=== PATIENT | female | born 1960 | race Caucasian/White ===

== ENCOUNTER → 2020-12-17 | Outpatient (CLI) | payer SELFPAY | END | disposition home or self-care (01) | LOC: US 08:03 | PROVIDERS: ATTEND Family Medicine | DX: I73.9 Peripheral vascular disease, unspecified (principal) ==

== ENCOUNTER 2020-12-21 21:49 | Emergency (ER) | payer SELFPAY ==
[~2020-12-21] VITALS: Ht 170.2 cm; Wt 122.5 kg
[2020-12-22 01:22] LABS: BASO % 0.2 % (0.0-1.0); EOS # 0.1 10*3/uL (0.0-0.4); EOS % 0.8 % (1.0-4.0); HEMATOCRIT 44.8 % (37.0-47.0); LYMPH # 2.6 10*3/uL (1.3-4.4); LYMPH % 19.9 % (27.0-41.0); MEAN CELL VOLUME 91.2 fl (81.0-99.0); MEAN CORPUSCULAR HGB 29.5 pg (27.0-31.0); MEAN CORPUSCULAR HGB CONC 32.4 g/dl (33.0-37.0); MEAN PLATELET VOLUME 9.7 fl (9.6-12.3); MONO % 7.2 % (3.0-9.0); NEUT # 9.4 10*3/uL (2.3-7.9); NEUT % 71.4 % (47.0-73.0); PLATELET COUNT AUTOMATED 295 10*3/uL (130-400); RED BLOOD COUNT 4.91 10*6/uL (4.10-5.10); RED CELL DISTRI WIDTH 14.7 % (0-14.5); WHITE BLOOD COUNT 13.2 10*3/uL (4.8-10.8)
[2020-12-22 01:40] LABS: ALBUMIN 3.5 gm/dl (3.1-4.5); ALKALINE PHOSPHATASE 128 U/L (45-117); BUN 18 mg/dl (7-24); CHLORIDE 102 mmol/L (98-107); CREATININE 0.99 mg/dL (0.55-1.02); POTASSIUM 3.9 mmol/L (3.5-5.1); SGOT/AST 17 IU/L (3-35); SGPT/ALT 29 U/L (12-78); SODIUM 138 mmol/L (136-145); TOTAL PROTEIN 8.2 gm/dL (6.4-8.2); URIC ACID 6.6 mg/dL (2.6-6.0)
== END 2020-12-22 08:03 | disposition short-term general hospital (02) ==
LOC: ED 21:49
PROVIDERS: Emergency Medicine
DX: I73.9 Peripheral vascular disease, unspecified (principal); F17.200 Nicotine dependence, unspecified, uncomplicated

== ENCOUNTER → 2021-08-09 | Outpatient (CLI) | payer OTHER ==
[2021-08-09 11:13] LABS: BASO % 0.4 % (0.0-1.0); BILIRUBIN Negative (Negative); BLOOD Negative (Negative); CLARITY Clear (Clear); COLOR Yellow (Yellow); EOS # 0.1 10*3/uL (0.0-0.4); EOS % 1.5 % (1.0-4.0); GLUCOSE Negative (Negative); HEMATOCRIT 44.1 % (37.0-47.0); KETONE Negative (Negative); LEUKO ESTERASE Negative (Negative); LYMPH # 2.8 10*3/uL (1.3-4.4); LYMPH % 32.7 % (27.0-41.0); MEAN CELL VOLUME 92.3 fl (81.0-99.0); MEAN CORPUSCULAR HGB 29.5 pg (27.0-31.0); MONO # 0.5 10*3/uL (0.1-1.0); NITRITE Negative (Negative); PH 5.5 (4.5-8.0); PLATELET COUNT AUTOMATED 266 10*3/uL (130-400); RED BLOOD COUNT 4.78 10*6/uL (4.10-5.10); RED CELL DISTRI WIDTH 13.7 % (0-14.5); RETICULOCYTE % 1.56 % (0.50-2.50); UROBILINOGEN 0.2 E.U./dl (0.0-1.0); WHITE BLOOD COUNT 8.5 10*3/uL (4.8-10.8)
[2021-08-09 11:23] LABS: BACTERIA TRACE; MUCOUS 1+
[2021-08-09 11:29] LABS: ALKALINE PHOSPHATASE 119 U/L (45-117); BUN 22 mg/dl (7-24); CHLORIDE 107 mmol/L (98-107); CHOLESTEROL 165 mg/dL (<200); CREATININE 0.87 mg/dL (0.55-1.02); GAMMA GLUTAMYL TRANSPEPTIDASE 54 U/L (5-55); IRON 53 ug/dL (50-170); LDL CHOLESTEROL 88 mg/dL (9-159); POTASSIUM 3.8 mmol/L (3.5-5.1); SGOT/AST 15 IU/L (3-35); SGPT/ALT 21 U/L (12-78); SODIUM 141 mmol/L (136-145); TOTAL IRON BINDING CAPACITY 366 ug/dl (250-450); TOTAL PROTEIN 7.7 gm/dL (6.4-8.2); TRIGLYCERIDES 215 mg/dl (<150)
[2021-08-09 12:01] LABS: FERRITIN 55.6 ng/mL (10.0-291.0); VITAMIN D, 25-HYDROXY 28.6 ng/mL (30-100)
== END | disposition home or self-care (01) ==
LOC: LAB 10:51
PROVIDERS: ATTEND Family Medicine
DX: E78.5 Hyperlipidemia, unspecified (principal); R79.89 Other specified abnormal findings of blood chemistry; R53.83 Other fatigue; R74.8 Abnormal levels of other serum enzymes; E11.9 Type 2 diabetes mellitus without complications; E55.9 Vitamin D deficiency, unspecified

== ENCOUNTER → 2024-06-04 | Outpatient (CLI) | payer OTHER | END | disposition home or self-care (01) | LOC: US 14:00 | PROVIDERS: ATTEND Podiatrist | DX: M79.661 Pain in right lower leg (principal); M79.89 Other specified soft tissue disorders; M79.662 Pain in left lower leg; R60.0 Localized edema; Z72.0 Tobacco use ==

== ENCOUNTER 2024-12-16 15:47 | Inpatient (IN) | payer OTHER ==
[~2024-12-16] VITALS: Ht 167.6 cm; Wt 122.0 kg
[2024-12-16 15:49] VITALS: BP 135/73
[2024-12-16] MEDS ORDERED: Albuterol Sulf/Ipratropium 3 ML VIAL NEB ONE (16:05)
[2024-12-16 16:25] LABS: BASO # 0.0 10*3/uL (0.0-0.1); BASO % 0.2 % (0.0-1.0); EOS # 0.0 10*3/uL (0.0-0.4); EOS % 0.1 % (1.0-4.0); MEAN CELL VOLUME 97.5 fl (81.0-99.0); MEAN CORPUSCULAR HGB 30.2 pg (27.0-31.0); MEAN PLATELET VOLUME 9.7 fl (9.6-12.3); MONO # 1.3 10*3/uL (0.1-1.0); MONO % 13.1 % (3.0-9.0); NEUT # 7.2 10*3/uL (2.3-7.9); NEUT % 70.1 % (47.0-73.0); NUCLEATED RED BLOOD CELL 0.0 % (0.0-0.0); NUCLEATED RED BLOOD CELL 0.0 10*3/uL (0.0-0.0); PLATELET COUNT AUTOMATED 265 10*3/uL (130-400); RED CELL DISTRI WIDTH 15.4 % (0-14.5)
[2024-12-16 16:40] LABS: BUN 15 mg/dl (9-23)
[2024-12-16] MEDS ORDERED: Water, Sterile 10 ML VIAL ONE (16:48)
[2024-12-16] MEDS ORDERED: FUROSEMIDE 40 MG/4 ML VIAL IV ONE ×2 (18:20→20:25)
[2024-12-16] MEDS ORDERED: AZITHROMYCIN 250 ML IV ONE (18:20)
[2024-12-16] MEDS ORDERED: AIRSUPRA 90-810.7 GM INH (20:08)
[2024-12-16] MEDS ORDERED: ASPIRIN ADULT L81 M1 PO (20:09)
[2024-12-16] MEDS ORDERED: TYLENOL EXTRA500 M2 PO (20:09)
[2024-12-16] MEDS ORDERED: ESOMEPRAZOLE MA20 MG PO (20:09)
[2024-12-16] MEDS ORDERED: ACETAMINOPHEN 325 MG TAB PO PRN (20:10)
[2024-12-16] MEDS ORDERED: BISACODYL 5 MG TAB PO PRN (20:10)
[2024-12-16] MEDS ORDERED: Clopidogrel75 MG PO (20:10)
[2024-12-16] MEDS ORDERED: ACETAMINOPHEN 650 MG SUPP R PRN (20:10)
[2024-12-16] MEDS ORDERED: BISACODYL 10 MG SUPP R PRN (20:10)
[2024-12-16] MEDS ORDERED: RISPERDAL1 M1 PO (20:10)
[2024-12-16] MEDS ORDERED: Ondansetron Hydrochloride 4 MG/2 ML VIAL IV PRN (20:10)
[2024-12-16] MEDS ORDERED: Acetaminophen/Hydrocodone 5 MG/325 MG TABLET PO PRN (20:10)
[2024-12-16] MEDS ORDERED: GABAPENTIN ER300 MG PO (20:10)
[2024-12-16] MEDS ORDERED: TRELEGY ELLIPT1 EAC1 INH (20:11)
[2024-12-16] MEDS ORDERED: ZOLOFT50 MG PO (20:11)
[2024-12-16] MEDS ORDERED: LIPITOR20 MG PO (20:12)
[2024-12-16] MEDS ORDERED: METFORMIN HYDR500 MG PO (20:12)
[2024-12-16] MEDS ORDERED: ATENOLOL-CHLOR1 EAC1 PO (20:13)
[2024-12-16] MEDS ORDERED: DEXTROSE 50% 25 GM/50 ML VIAL IV PRN (20:15)
[2024-12-16] MEDS ORDERED: Albuterol Sulf/Ipratropium 3 ML VIAL NEB SCH (20:15)
[2024-12-16 20:30] VITALS: BP 104/77
[2024-12-16] MEDS ORDERED: INSULIN LISPRO 1 UNIT/0.01 ML SQ SCH (22:00)
[2024-12-16] MEDS ORDERED: risperiDONE 1 MG TAB PO SCH (22:00)
[2024-12-16] MEDS ORDERED: GUAIFENESIN 600 MG TAB ER PO SCH (22:00)
[2024-12-16 23:10] LABS: BILIRUBIN Negative (Negative); BLOOD Trace-Lysed (Negative); CLARITY Clear (Clear); COLOR Yellow (Yellow); KETONE Negative (Negative); LEUKO ESTERASE Negative (Negative); NITRITE Negative (Negative); PH 5.0 (4.5-8.0); SPECIFIC GRAVITY <= 1.005 (1.001-1.030); UROBILINOGEN 0.2 E.U./dl (0.0-1.0)
[2024-12-16 23:28] LABS: BACTERIA 1+; WBC 0-2 wbc/hpf (0-5)
[2024-12-17] MEDS ORDERED: Dexamethasone/Tobramycin OPHTHALMIC 2.5 ML BOTTLE OPH SCH
[2024-12-17 00:40] VITALS: BP 104/77
[2024-12-17] MEDS ORDERED: diazePAM 10 MG/2 ML SYR IV SCH (01:30)
[2024-12-17] MEDS ORDERED: diazePAM 10 MG/2 ML SYR IV PRN (03:35)
[2024-12-17] MEDS ORDERED: FUROSEMIDE 20 MG/2 ML VIAL IV SCH (06:00)
[2024-12-17 06:53] LABS: BASO # 0.0 10*3/uL (0.0-0.1); BASO % 0.2 % (0.0-1.0); EOS # 0.0 10*3/uL (0.0-0.4); EOS % 0.0 % (1.0-4.0); MEAN CELL VOLUME 99.3 fl (81.0-99.0); MEAN CORPUSCULAR HGB 29.9 pg (27.0-31.0); MEAN PLATELET VOLUME 9.8 fl (9.6-12.3); MONO # 0.8 10*3/uL (0.1-1.0); MONO % 8.8 % (3.0-9.0); NEUT # 7.0 10*3/uL (2.3-7.9); NEUT % 79.9 % (47.0-73.0); NUCLEATED RED BLOOD CELL 0.0 % (0.0-0.0); NUCLEATED RED BLOOD CELL 0.0 10*3/uL (0.0-0.0); PLATELET COUNT AUTOMATED 253 10*3/uL (130-400); RED CELL DISTRI WIDTH 15.0 % (0-14.5)
[2024-12-17 07:05] LABS: ACT PARTIAL THROMBO TIME 28.8 SECONDS (20.0-32.1)
[2024-12-17 07:25] LABS: BUN 18 mg/dl (9-23); FREE T4 0.92 ng/dl (0.89-1.76); LDL CHOLESTEROL 85 mg/dL (9-159); SGPT/ALT 29 U/L (5-49)
[2024-12-17 08:00] VITALS: BP 127/54
[2024-12-17 08:06] LABS: VITAMIN D, 25-HYDROXY 12.0 ng/mL (30-100)
[2024-12-17] MEDS ORDERED: ATORVASTATIN CALCIUM 20 MG TAB PO SCH (10:00)
[2024-12-17] MEDS ORDERED: ASPIRIN, CHEWABLE 81 MG TAB PO SCH (10:00)
[2024-12-17] MEDS ORDERED: Clopidogrel Hydrogen Sulfate 75 MG TAB PO SCH (10:00)
[2024-12-17] MEDS ORDERED: ATENOLOL 50 MG TAB PO SCH (10:00)
[2024-12-17] MEDS ORDERED: CHLORTHALIDONE 25 MG TAB PO SCH (10:00)
[2024-12-17] MEDS ORDERED: GABAPENTIN 300 MG CAP PO SCH (10:00)
[2024-12-17 10:21] LABS: ABG O2 SATURATION 93.6 % (94.0-98.0); ARTERIAL BLOOD GAS PH 7.272 (7.350-7.450); ARTERIAL BLOOD GAS PO2 77.3 mmHg (83.0-108.0)
[2024-12-17 10:22] LABS: ABG BASE EXCESS 6.6 mmol/L (-2.0-3.0)
[2024-12-17 12:00] VITALS: BP 161/75
[2024-12-17 15:25] LABS: ABG O2 SATURATION 96.3 % (94.0-98.0); ARTERIAL BLOOD GAS PH 7.282 (7.350-7.450); ARTERIAL BLOOD GAS PO2 85.0 mmHg (83.0-108.0)
[2024-12-17 15:27] LABS: ABG BASE EXCESS 6.3 mmol/L (-2.0-3.0)
[2024-12-17 16:00] VITALS: BP 155/80
[2024-12-17] MEDS ORDERED: Cefepime Hydrochloride 2 GM,IV 1 EA in SODIUM CHLORIDE 0.9% 50 ML IV SCH (17:00)
[2024-12-17 19:02] LABS: ABG O2 SATURATION 96.7 % (94.0-98.0); ARTERIAL BLOOD GAS PH 7.295 (7.350-7.450); ARTERIAL BLOOD GAS PO2 92.9 mmHg (83.0-108.0)
[2024-12-17 19:04] LABS: ABG BASE EXCESS 10.8 mmol/L (-2.0-3.0)
[2024-12-17 20:00] VITALS: BP 136/65
[2024-12-17] MEDS ORDERED: AZITHROMYCIN 250 ML IV SCH (20:00)
[2024-12-18] VITALS (13 sets, daily range): BP systolic 107–136; BP diastolic 55–68
[2024-12-18 05:34] LABS: BUN 26 mg/dl (9-23)
[2024-12-18 05:58] LABS: BASO # 0.0 10*3/uL (0.0-0.1); BASO % 0.1 % (0.0-1.0); EOS # 0.0 10*3/uL (0.0-0.4); EOS % 0.0 % (1.0-4.0); MEAN CELL VOLUME 101.0 fl (81.0-99.0); MEAN CORPUSCULAR HGB 30.4 pg (27.0-31.0); MEAN PLATELET VOLUME 10.2 fl (9.6-12.3); MONO # 0.5 10*3/uL (0.1-1.0); MONO % 6.8 % (3.0-9.0); NEUT # 6.3 10*3/uL (2.3-7.9); NEUT % 81.6 % (47.0-73.0); NUCLEATED RED BLOOD CELL 0.0 10*3/uL (0.0-0.0); NUCLEATED RED BLOOD CELL 0.3 % (0.0-0.0); PLATELET COUNT AUTOMATED 259 10*3/uL (130-400); RED CELL DISTRI WIDTH 14.9 % (0-14.5)
[2024-12-18 07:28] LABS: ABG O2 SATURATION 90.6 % (94.0-98.0); ARTERIAL BLOOD GAS PH 7.391 (7.350-7.450); ARTERIAL BLOOD GAS PO2 59.9 mmHg (83.0-108.0)
[2024-12-18 07:30] LABS: ABG BASE EXCESS 9.2 mmol/L (-2.0-3.0)
[2024-12-18] MEDS ORDERED: Cholecalciferol 5,000 IU CAP (125 MCG) PO SCH (10:00)
[2024-12-19] VITALS (12 sets, daily range): BP systolic 115–169; BP diastolic 62–87
[2024-12-19 05:28] LABS: SGPT/ALT 24 U/L (5-49)
[2024-12-19 06:02] LABS: BASO # 0.0 10*3/uL (0.0-0.1); BASO % 0.2 % (0.0-1.0); EOS # 0.0 10*3/uL (0.0-0.4); EOS % 0.0 % (1.0-4.0); MEAN CELL VOLUME 99.3 fl (81.0-99.0); MEAN CORPUSCULAR HGB 29.7 pg (27.0-31.0); MEAN PLATELET VOLUME 10.0 fl (9.6-12.3); MONO # 0.5 10*3/uL (0.1-1.0); MONO % 6.2 % (3.0-9.0); NEUT # 7.1 10*3/uL (2.3-7.9); NEUT % 81.2 % (47.0-73.0); NUCLEATED RED BLOOD CELL 0.0 % (0.0-0.0); NUCLEATED RED BLOOD CELL 0.0 10*3/uL (0.0-0.0); PLATELET COUNT AUTOMATED 259 10*3/uL (130-400); RED CELL DISTRI WIDTH 14.8 % (0-14.5)
[2024-12-19 06:13] LABS: BUN 37 mg/dl (9-23)
[2024-12-19 08:20] LABS: ABG O2 SATURATION 88.4 % (94.0-98.0); ARTERIAL BLOOD GAS PH 7.403 (7.350-7.450); ARTERIAL BLOOD GAS PO2 56.9 mmHg (83.0-108.0)
[2024-12-19 08:23] LABS: ABG BASE EXCESS 12.7 mmol/L (-2.0-3.0)
[2024-12-19] MEDS ORDERED: FUROSEMIDE 40 MG TAB PO SCH (18:00)
[2024-12-20] VITALS (12 sets, daily range): BP systolic 122–145; BP diastolic 43–69
[2024-12-20 05:33] LABS: BUN 38 mg/dl (9-23); SGPT/ALT 24 U/L (5-49)
[2024-12-20 06:05] LABS: BASO # 0.0 10*3/uL (0.0-0.1); BASO % 0.2 % (0.0-1.0); EOS # 0.0 10*3/uL (0.0-0.4); EOS % 0.0 % (1.0-4.0); MEAN CELL VOLUME 98.2 fl (81.0-99.0); MEAN CORPUSCULAR HGB 30.1 pg (27.0-31.0); MEAN PLATELET VOLUME 10.1 fl (9.6-12.3); MONO # 0.7 10*3/uL (0.1-1.0); MONO % 7.2 % (3.0-9.0); NEUT # 7.0 10*3/uL (2.3-7.9); NEUT % 77.5 % (47.0-73.0); NUCLEATED RED BLOOD CELL 0.0 % (0.0-0.0); NUCLEATED RED BLOOD CELL 0.0 10*3/uL (0.0-0.0); PLATELET COUNT AUTOMATED 245 10*3/uL (130-400); RED CELL DISTRI WIDTH 14.4 % (0-14.5)
[2024-12-20] MEDS ORDERED: IOHEXOL 300 MG/ML 100 ML VIAL IV ONE (11:05)
[2024-12-20] MEDS ORDERED: HEEL PROTECTOR DEVICE ONE (17:09)
[2024-12-21] VITALS (7 sets, daily range): BP systolic 121–154; BP diastolic 52–78
[2024-12-21 06:07] LABS: BUN 39 mg/dl (9-23); SGPT/ALT 23 U/L (5-49)
[2024-12-21 06:15] LABS: BASO # 0.0 10*3/uL (0.0-0.1); BASO % 0.3 % (0.0-1.0); EOS # 0.0 10*3/uL (0.0-0.4); EOS % 0.0 % (1.0-4.0); MEAN CELL VOLUME 95.5 fl (81.0-99.0); MEAN CORPUSCULAR HGB 30.1 pg (27.0-31.0); MEAN PLATELET VOLUME 9.9 fl (9.6-12.3); MONO # 0.6 10*3/uL (0.1-1.0); MONO % 4.7 % (3.0-9.0); NEUT # 9.3 10*3/uL (2.3-7.9); NEUT % 79.9 % (47.0-73.0); NUCLEATED RED BLOOD CELL 0.0 % (0.0-0.0); NUCLEATED RED BLOOD CELL 0.0 10*3/uL (0.0-0.0); PLATELET COUNT AUTOMATED 281 10*3/uL (130-400); RED CELL DISTRI WIDTH 14.2 % (0-14.5)
[2024-12-22] VITALS: BP 128/84
[2024-12-22 04:00] VITALS: BP 146/78
[2024-12-22 05:12] LABS: BUN 37 mg/dl (9-23); SGPT/ALT 23 U/L (5-49)
[2024-12-22 06:32] LABS: BASO # 0.0 10*3/uL (0.0-0.1); BASO % 0.1 % (0.0-1.0); EOS # 0.0 10*3/uL (0.0-0.4); EOS % 0.0 % (1.0-4.0); MEAN CELL VOLUME 96.5 fl (81.0-99.0); MEAN CORPUSCULAR HGB 30.2 pg (27.0-31.0); MEAN PLATELET VOLUME 10.0 fl (9.6-12.3); MONO # 0.8 10*3/uL (0.1-1.0); MONO % 6.7 % (3.0-9.0); NEUT # 8.9 10*3/uL (2.3-7.9); NEUT % 77.3 % (47.0-73.0); NUCLEATED RED BLOOD CELL 0.0 % (0.0-0.0); NUCLEATED RED BLOOD CELL 0.0 10*3/uL (0.0-0.0); PLATELET COUNT AUTOMATED 260 10*3/uL (130-400); RED CELL DISTRI WIDTH 14.4 % (0-14.5)
[2024-12-22 08:00] VITALS: BP 156/71
[2024-12-22 12:00] VITALS: BP 146/72
[2024-12-22 12:46] LABS: ABG O2 SATURATION 93.4 % (94.0-98.0); ARTERIAL BLOOD GAS PH 7.402 (7.350-7.450); ARTERIAL BLOOD GAS PO2 67.5 mmHg (83.0-108.0)
[2024-12-22 12:51] LABS: ABG BASE EXCESS 13.5 mmol/L (-2.0-3.0)
[2024-12-22 16:00] VITALS: BP 129/63
[2024-12-22 20:00] VITALS: BP 123/67
[2024-12-23] VITALS: BP 157/91
[2024-12-23 04:00] VITALS: BP 152/65
[2024-12-23 05:12] LABS: BUN 36 mg/dl (9-23); SGPT/ALT 22 U/L (5-49)
[2024-12-23 07:12] LABS: BASO # 0.0 10*3/uL (0.0-0.1); BASO % 0.2 % (0.0-1.0); EOS # 0.1 10*3/uL (0.0-0.4); EOS % 0.5 % (1.0-4.0); MEAN CELL VOLUME 95.6 fl (81.0-99.0); MEAN CORPUSCULAR HGB 29.5 pg (27.0-31.0); MEAN PLATELET VOLUME 9.7 fl (9.6-12.3); MONO # 0.9 10*3/uL (0.1-1.0); MONO % 7.6 % (3.0-9.0); NEUT # 8.7 10*3/uL (2.3-7.9); NEUT % 72.5 % (47.0-73.0); NUCLEATED RED BLOOD CELL 0.0 % (0.0-0.0); NUCLEATED RED BLOOD CELL 0.0 10*3/uL (0.0-0.0); PLATELET COUNT AUTOMATED 231 10*3/uL (130-400); RED CELL DISTRI WIDTH 14.0 % (0-14.5)
[2024-12-23 08:00] VITALS: BP 130/81
[2024-12-23] MEDS ORDERED: POTASSIUM CHLORIDE 20 MEQ TAB PO ONE (08:20)
[2024-12-23] MEDS ORDERED: Menthol/Methyl Salicylate 1 EA TUBE T PRN (10:55)
[2024-12-23 12:00] VITALS: BP 154/82
[2024-12-23 20:00] VITALS: BP 156/60
[2024-12-23] MEDS ORDERED: GABAPENTIN 300 MG CAP PO SCH (22:00)
[2024-12-24] VITALS: BP 147/63
[2024-12-24 04:00] VITALS: BP 129/61
[2024-12-24 06:12] LABS: BASO # 0.0 10*3/uL (0.0-0.1); BASO % 0.1 % (0.0-1.0); EOS # 0.1 10*3/uL (0.0-0.4); EOS % 0.6 % (1.0-4.0); MEAN CELL VOLUME 95.9 fl (81.0-99.0); MEAN CORPUSCULAR HGB 30.2 pg (27.0-31.0); MEAN PLATELET VOLUME 10.0 fl (9.6-12.3); MONO # 0.8 10*3/uL (0.1-1.0); MONO % 7.7 % (3.0-9.0); NEUT # 7.4 10*3/uL (2.3-7.9); NEUT % 70.7 % (47.0-73.0); NUCLEATED RED BLOOD CELL 0.0 % (0.0-0.0); NUCLEATED RED BLOOD CELL 0.0 10*3/uL (0.0-0.0); PLATELET COUNT AUTOMATED 188 10*3/uL (130-400); RED CELL DISTRI WIDTH 14.0 % (0-14.5)
[2024-12-24 06:24] LABS: BUN 34 mg/dl (9-23); SGPT/ALT 22 U/L (5-49)
[2024-12-24] MEDS ORDERED: POTASSIUM CHLORIDE 20 MEQ TAB PO ONE ×2 (07:50→14:00)
[2024-12-24 08:00] VITALS: BP 136/61
[2024-12-24 12:00] VITALS: BP 129/67
[2024-12-24 16:00] VITALS: BP 144/88
[2024-12-24 20:00] VITALS: BP 128/77
[2024-12-25] VITALS: BP 122/70
[2024-12-25 06:11] LABS: BUN 33 mg/dl (9-23)
[2024-12-25 06:43] LABS: BASO # 0.0 10*3/uL (0.0-0.1); BASO % 0.3 % (0.0-1.0); EOS # 0.1 10*3/uL (0.0-0.4); EOS % 0.8 % (1.0-4.0); MEAN CELL VOLUME 96.2 fl (81.0-99.0); MEAN CORPUSCULAR HGB 30.6 pg (27.0-31.0); MEAN PLATELET VOLUME 11.0 fl (9.6-12.3); MONO # 1.0 10*3/uL (0.1-1.0); MONO % 7.9 % (3.0-9.0); NEUT # 7.9 10*3/uL (2.3-7.9); NEUT % 65.7 % (47.0-73.0); NUCLEATED RED BLOOD CELL 0.0 % (0.0-0.0); NUCLEATED RED BLOOD CELL 0.0 10*3/uL (0.0-0.0); PLATELET COUNT AUTOMATED 194 10*3/uL (130-400); RED CELL DISTRI WIDTH 14.0 % (0-14.5)
[2024-12-25 08:00] VITALS: BP 128/68
[2024-12-25] MEDS ORDERED: POTASSIUM CHLORIDE 20 MEQ TAB PO SCH (10:00)
[2024-12-25 12:00] VITALS: BP 125/66
[2024-12-25 16:00] VITALS: BP 146/73
[2024-12-25 20:00] VITALS: BP 165/72
[2024-12-26] VITALS: BP 123/78
[2024-12-26 05:24] LABS: BUN 34 mg/dl (9-23)
[2024-12-26 06:32] LABS: BASO # 0.0 10*3/uL (0.0-0.1); BASO % 0.2 % (0.0-1.0); EOS # 0.1 10*3/uL (0.0-0.4); EOS % 0.5 % (1.0-4.0); MEAN CELL VOLUME 95.2 fl (81.0-99.0); MEAN CORPUSCULAR HGB 29.5 pg (27.0-31.0); MEAN PLATELET VOLUME 11.4 fl (9.6-12.3); MONO # 0.8 10*3/uL (0.1-1.0); MONO % 6.5 % (3.0-9.0); NEUT # 8.6 10*3/uL (2.3-7.9); NEUT % 67.3 % (47.0-73.0); NUCLEATED RED BLOOD CELL 0.0 % (0.0-0.0); NUCLEATED RED BLOOD CELL 0.0 10*3/uL (0.0-0.0); PLATELET COUNT AUTOMATED 186 10*3/uL (130-400); RED CELL DISTRI WIDTH 13.9 % (0-14.5)
[2024-12-26 08:00] VITALS: BP 140/66
[2024-12-26] MEDS ORDERED: predniSONE 10 MG TAB PO SCH (10:00)
[2024-12-26] MEDS ORDERED: predniSONE 20 MG TAB PO SCH (10:00)
[2024-12-26] MEDS ORDERED: PREDNISONE10 MG PO (11:11)
[2024-12-26] MEDS ORDERED: KLOR-CON M1010 ME1 PO (11:12)
[2024-12-26] MEDS ORDERED: LASIX40 MG PO (11:12)
[2024-12-29] MEDS ORDERED: predniSONE 10 MG TAB PO SCH (10:00)
[2025-01-01] MEDS ORDERED: predniSONE 20 MG TAB PO SCH (10:00)
[2025-01-04] MEDS ORDERED: predniSONE 10 MG TAB PO SCH (10:00)
== END 2024-12-26 16:49 | disposition home or self-care (01) | DRG 291 ==
LOC: ED 15:47 → ICCU 18:48 → 5E 18:48 → EDHOLD 18:48 → 5E 23:40 → ICCU 12-17 11:19
PROVIDERS: Internal Medicine; Internal Medicine Critical Care Medicine; Nurse Practitioner Family; Student in an Organized Health Care Education/Training Program; ADMIT Internal Medicine; ATTEND Internal Medicine
PROC: 5A0935A Assistance with Respiratory Ventilation, Less than 24 Consecutive Hours, High Flow/Velocity Cannula (ICD-10-PCS; 2024-12-17)
PROC: 5A09557 Assistance with Respiratory Ventilation, Greater than 96 Consecutive Hours, Continuous Positive Airway Pressure (ICD-10-PCS; 2024-12-17)
PROC: 5A0935A Assistance with Respiratory Ventilation, Less than 24 Consecutive Hours, High Flow/Velocity Cannula (ICD-10-PCS; 2024-12-22)
PROC: 5A0935A Assistance with Respiratory Ventilation, Less than 24 Consecutive Hours, High Flow/Velocity Cannula (ICD-10-PCS; 2024-12-23)
PROC: 5A09357 Assistance with Respiratory Ventilation, Less than 24 Consecutive Hours, Continuous Positive Airway Pressure (ICD-10-PCS; 2024-12-23)
PROC: 5A0935A Assistance with Respiratory Ventilation, Less than 24 Consecutive Hours, High Flow/Velocity Cannula (ICD-10-PCS; 2024-12-24)
PROC: 5A09357 Assistance with Respiratory Ventilation, Less than 24 Consecutive Hours, Continuous Positive Airway Pressure (ICD-10-PCS; 2024-12-24)
PROC: 5A0935A Assistance with Respiratory Ventilation, Less than 24 Consecutive Hours, High Flow/Velocity Cannula (ICD-10-PCS; principal; 2024-12-25)
DX: I13.0 Hypertensive heart and chronic kidney disease with heart failure and stage 1 through stage 4 chronic kidney disease, or unspecified chronic kidney disease (principal); I50.33 Acute on chronic diastolic (congestive) heart failure; J96.21 Acute and chronic respiratory failure with hypoxia; J96.22 Acute and chronic respiratory failure with hypercapnia; J18.1 Lobar pneumonia, unspecified organism; J44.1 Chronic obstructive pulmonary disease with (acute) exacerbation; N17.9 Acute kidney failure, unspecified; E87.3 Alkalosis; Z68.41 Body mass index [BMI] 40.0-44.9, adult; N18.31 Chronic kidney disease, stage 3a; E83.52 Hypercalcemia; E11.22 Type 2 diabetes mellitus with diabetic chronic kidney disease; E11.51 Type 2 diabetes mellitus with diabetic peripheral angiopathy without gangrene; E11.65 Type 2 diabetes mellitus with hyperglycemia; F17.210 Nicotine dependence, cigarettes, uncomplicated; F41.1 Generalized anxiety disorder; E66.01 Morbid (severe) obesity due to excess calories; F32.A Depression, unspecified; E78.00 Pure hypercholesterolemia, unspecified; E04.1 Nontoxic single thyroid nodule; E87.6 Hypokalemia; E11.42 Type 2 diabetes mellitus with diabetic polyneuropathy; R53.81 Other malaise; Z90.710 Acquired absence of both cervix and uterus; Z82.49 Family history of ischemic heart disease and other diseases of the circulatory system; Z71.6 Tobacco abuse counseling

== ENCOUNTER → 2025-03-26 | Outpatient (CLI) | payer OTHER ==
[~2025-03-26] MED LIST: AIRSUPRA 90-810.7 GM INH; ASPIRIN ADULT L81 M1 PO; ATENOLOL-CHLOR1 EAC1 PO; Clopidogrel75 MG PO; ESOMEPRAZOLE MA20 MG PO; GABAPENTIN ER300 MG PO; KLOR-CON M1010 ME1 PO; LASIX40 MG PO; LIPITOR20 MG PO; METFORMIN HYDR500 MG PO; PREDNISONE10 MG PO; RISPERDAL1 M1 PO; TRELEGY ELLIPT1 EAC1 INH; TYLENOL EXTRA500 M2 PO; ZOLOFT50 MG PO
== END | disposition home or self-care (01) ==
LOC: RAD 15:49
PROVIDERS: ATTEND Family Medicine
DX: M47.816 Spondylosis without myelopathy or radiculopathy, lumbar region (principal); M25.78 Osteophyte, vertebrae; M41.86 Other forms of scoliosis, lumbar region; M16.12 Unilateral primary osteoarthritis, left hip